=== PATIENT | male | born 1985 | race Caucasian/White ===

== ENCOUNTER 2020-10-30 22:01 | Emergency (ER) | payer SELFPAY | END 2020-10-30 22:29 | disposition left against medical advice (07) | LOC: DL.ED 22:01 | DX: Z53.21 Procedure and treatment not carried out due to patient leaving prior to being seen by health care provider (principal) ==

== ENCOUNTER 2020-10-31 13:14 | Emergency (ER) | payer SELFPAY ==
--- NOTE | 2020-10-31 14:11 | CR ---
PROCEDURE INFORMATION: Exam: XR Right Ankle Exam date and time: 10/31/2020 1:41 PM Age: 35 years old Clinical indication: Injury or trauma; Fall; Sprain or strain; Ankle; Right; Additional info: Twisted ankle last night TECHNIQUE: Imaging protocol: XR Right ankle. Views: 3 or more views. COMPARISON: No relevant prior studies available. FINDINGS: Bones/joints: Multiple views of the right ankle demonstrate no evidence for fracture. There is normal mineralization and alignment. Ankle mortise is intact. Subtalar joints are in anatomic alignment. Soft tissues: Moderate lateral soft tissue swelling is present. IMPRESSION: Soft tissue swelling without acute osseous abnormality.
--- NOTE | 2020-10-31 15:56 | EDM.PDOC ---
Scribed by Nora Wilson 10/31/20 1554 for Ernesto Durand MD ED HPI GENERAL MEDICAL PROBLEM - General Chief Complaint: Lower Extremity Injury/Pain Stated Complaint: [id number] RIGHT ANKLE HURT Time Seen by Provider: 10/31/20 15:44 Source of Information: Reports: Patient, RN, RN Notes Reviewed History Limitations: Reports: No Limitations - History of Present Illness INITIAL COMMENTS - FREE TEXT/NARRATIVE: Patient presents to ED by POV stating he was at [employer] playing with his child and he fell on right ankle/foot. Right ankle and foot are red and swollen. Patient rates the pain at an 8/10. Onset: Today Duration: Constant Location: Reports: Lower Extremity, Right Quality: Reports: Ache Severity: Moderate Improves with: Reports: None Worsens with: Reports: None Associated Symptoms: Reports: No Other Symptoms Right Ankle Pain Score (Numeric/FACES): 8 - Related Data Allergies Allergy/AdvReac Type Severity Reaction Status Date / Time No Known Allergies Allergy Verified 10/31/20 13:59 Home Meds: Home Meds . [No Known Home Meds] 10/31/20 [History] Past Medical History HEENT History: Reports: None Cardiovascular History: Reports: None Respiratory History: Reports: None Gastrointestinal History: Reports: None Genitourinary History: Reports: None Musculoskeletal History: Reports: None Neurological History: Reports: None Psychiatric History: Reports: None Endocrine/Metabolic History: Reports: None Hematologic History: Reports: None Immunologic History: Reports: None Oncologic (Cancer) History: Reports: None Dermatologic History: Reports: None - Infectious Disease History Infectious Disease History: Reports: None - Past Surgical History Head Surgeries/Procedures: Reports: None Social & Family History - Tobacco Use Tobacco Use Status *Q: Current Every Day Tobacco User Years of Tobacco use: 10 Packs/Tins Daily: 0.5 - Caffeine Use Caffeine Use: Reports: Coffee - Recreational Drug Use Recreational Drug Use: No Review of Systems - Review of Systems Review Of Systems: Comprehensive ROS is negative, except as noted in HPI. ED EXAM, GENERAL - Physical Exam Exam: See Below Exam Limited By: No Limitations General Appearance: Alert, WD/WN, No Apparent Distress Head: Atraumatic, Normocephalic Neck: Normal Inspection Respiratory/Chest: No Respiratory Distress Cardiovascular: Regular Rate, Rhythm Extremities: No Pedal Edema, Normal Capillary Refill, Joint Swelling (Right ankle), Limited Range of Motion (Rt ankle due to pain.), Other (Rt ankle with generalized tenderness, no visible bruising or deformity.) Course - Vital Signs Last Recorded V/S: Last Vital Signs Temp 99.2 F 10/31/20 13:57 Pulse 96 10/31/20 13:57 Resp 18 10/31/20 13:57 BP 132/86 10/31/20 13:57 Pulse Ox 98 10/31/20 13:57 - Orders/Labs/Meds Orders: Active Orders 24 hr Category Date Time Status DME for Discharge [COMM] Routine Oth 10/31/20 15:51 Ordered DME for Discharge [COMM] Routine Oth 10/31/20 15:51 Ordered - Radiology Interpretation Free Text/Narrative:: Right ankle x-ray: Soft tissue swelling without acute osseous abnormality. See rad report. Departure - Departure Time of Disposition: 15:52 Disposition: Home, Self-Care 01 Condition: Good Clinical Impression: Right ankle sprain Qualifiers: Encounter type: initial encounter Involved ligament of ankle: unspecified ligament Qualified Code(s): S93.401A - Sprain of unspecified ligament of right ankle, initial encounter - Discharge Information *PRESCRIPTION DRUG MONITORING PROGRAM REVIEWED*: Not Applicable *COPY OF PRESCRIPTION DRUG MONITORING REPORT IN PATIENT [place]: Not Applicable Instructions: Ankle Sprain, [id number], Crutch Use, Adult, [id number] Forms: ED Department Discharge Additional Instructions: Rest, ice pack, and elevate right ankle to reduce pain and swelling. Use crutches and splint as needed for comfort for 7 to 10 days. Over the counter Ibuprofen (Motrin/Advil) 200mg: Take 4 tablets (800mg) by mouth ever 8 hours as needed for pain. Do not exceed this amount. Follow up with your primary clinic if not improving as expected in 2 weeks. Sepsis Event Note (ED) - Evaluation Sepsis Screening Result: No Definite Risk - Focused Exam Vital Signs: Vital Signs Temp Pulse Resp BP Pulse Ox 10/31/20 13:57 99.2 F 96 18 132/86 98 - My Orders Last 24 Hours: My Active Orders 10/31/20 15:51 DME for Discharge [COMM] Routine DME for Discharge [COMM] Routine - Assessment/Plan Last 24 Hours: My Active Orders 10/31/20 15:51 DME for Discharge [COMM] Routine DME for Discharge [COMM] Routine I have read and agree with the documentation that has been completed regarding this visit. By signing this record, I attest that the documentation was completed in my physical presence and is an accurate record of the encounter.
== END 2020-10-31 16:06 | disposition home or self-care (01) ==
LOC: DL.ED 13:14
DX: S93.401A Sprain of unspecified ligament of right ankle, initial encounter (principal); Z72.0 Tobacco use; W18.39XA Other fall on same level, initial encounter; Y92.830 Public park as the place of occurrence of the external cause
CPT/HCPCS: 73610-RT; 99282; 99283-25